=== PATIENT | male | born 1955 | race Two or more races ===

== ENCOUNTER 2016-10-25 02:31 | Emergency (ER) | payer BC ==
[~2016-10-25] VITALS: Ht 180.3 cm; Wt 90.0 kg
[2016-10-25] MEDS ORDERED: ASPI-496 PO (02:43)
[2016-10-25 03:16] LABS: BLOOD UREA NITROGEN 24 mg/dL (7-18)
[2016-10-25 03:20] LABS: IS PT STATUS REG ER OR PRE ER? YES
[2016-10-25] MEDS ORDERED: SODIUM CHLORIDE 0.9%, 500ML IVBOLUS ONE (04:30)
[2016-10-25] MEDS ORDERED: OMNIPAQUE 350 MG/ML, 100ML BOTTLE ONE (04:53)
[2016-10-25 06:10] LABS: IS PT STATUS REG ER OR PRE ER? YES
[2016-10-25 06:53] VITALS: BP 100/67
== END 2016-10-25 06:56 | disposition home or self-care (01) ==
LOC: ED 06:39
DX: R07.9 Chest pain, unspecified (principal); R73.9 Hyperglycemia, unspecified; I25.10 Atherosclerotic heart disease of native coronary artery without angina pectoris
CPT/HCPCS: 36415; 71010; 71275; 80048; 82040; 84484; 85025; 85379; 93005; 96360; 99285; J7040; Q9967